=== PATIENT | female | born 1950 | race African-American/Black ===

== ENCOUNTER 2021-03-06 12:21 | Emergency (ER) | payer OTHER ==
[~2021-03-06] VITALS: Ht 165.1 cm; Wt 83.5 kg
[2021-03-06 13:16] LABS: BASOPHILS % 0.5 % (0.0-2.0); EOSINOPHILS % 0.6 % (0.0-5.0); HEMATOCRIT. 40.8 % (36.0-48.0); HEMOGLOBIN. 13.8 g/dL (12.0-16.0); LYMPHOCYTES % 25.2 % (20.0-50.0); MEAN CORPUSCULAR HEMOGLOBIN 30.4 pg (28.0-32.0); MEAN CORPUSCULAR VOLUME 89.7 fL (81.0-99.0); MEAN PLATELET VOLUME 9.6 fl (7.4-10.4); MONOCYTES % 6.7 % (2.0-8.0); PLATELET 186 x1000/uL (130-400); RED BLOOD CELL COUNT 4.55 mill/uL (4.2-5.4)
[2021-03-06 13:22] LABS: CHLORIDE 107 mEq/L (98-107)
[2021-03-06] MEDS ORDERED: IOHEXOL-350 100 ML BOTTLE ONE (15:19)
[2021-03-06 17:06] VITALS: BP 158/70
== END 2021-03-06 17:19 | disposition short-term general hospital (02) ==
LOC: ER 13:27 → CANBEDREQ 16:59 → ER 17:19
DX: I49.9 Cardiac arrhythmia, unspecified (principal); R55 Syncope and collapse; I10 Essential (primary) hypertension
CPT/HCPCS: 36415; 71045; 74174; 80053; 83880; 84484; 85025; 93005; 99285; Q9967

== ENCOUNTER 2024-04-22 20:37 | Emergency (ER) | payer OTHER ==
[~2024-04-22] VITALS: Ht 167.6 cm; Wt 76.0 kg
[2024-04-22 20:43] VITALS: O2SAT 95
[2024-04-22 21:50] LABS: DIFFERENTIAL COMMENT 1; HEMATOCRIT. 40.1 % (36.0-48.0); HEMOGLOBIN. 13.7 g/dL (12.0-16.0); MEAN CORPUSCULAR HEMOGLOBIN 31.1 pg (28.0-32.0); MEAN CORPUSCULAR HGB CONC 34.1 g/dL (31.0-37.0); MEAN CORPUSCULAR VOLUME 91.4 fL (81.0-99.0); MEAN PLATELET VOLUME 9.6 fl (7.4-10.4); PLATELET 186 x1000/uL (130-400); RED BLOOD CELL COUNT 4.39 mill/uL (4.2-5.4); RED CELL DISTRIBUTION WIDTH 13.4 % (11.6-14.6); WHITE BLOOD COUNT 11.2 x1000/uL (4.5-11.0)
[2024-04-22] MEDS: ONDANSETRON HCL 4MG/2ML INJ IV STA (21:52)
[2024-04-22] MEDS: KETOROLAC 30MG/ML VIAL IV STA (21:53)
[2024-04-22 22:00] LABS: CHLORIDE 108 mEq/L (98-107); POTASSIUM 3.7 mEq/L (3.5-5.1); SODIUM 142 mEq/L (136-145)
[2024-04-22 22:01] LABS: CALCIUM 9.6 mg/dL (8.7-10.4); CARBON DIOXIDE 27 mEq/L (21-32)
[2024-04-22 22:03] LABS: PROTHROMBIN TIME 10.9 sec (9.6-11.0)
[2024-04-22 22:06] LABS: CREATININE 1.1 mg/dL (0.6-1.0); GLUCOSE 128 mg/dL (70-105); UREA NITROGEN BLOOD 15 mg/dL (9-23)
[2024-04-22 22:08] LABS: ALANINE AMINOTRANSFERASE 65 IU/L (10-49); ALBUMIN 4.4 g/dL (3.2-4.8); ASPARTATE AMINOTRANSFERASE 129 IU/L (<34); BILIRUBIN DIRECT 0.5 mg/dL (<=3.0)
[2024-04-22 22:09] LABS: BILIRUBIN TOTAL 1.1 mg/dL (0.1-1.0); PROTEIN TOTAL 7.2 g/dL (6.0-8.3)
[2024-04-22 22:10] LABS: PLATELET ESTIMATE NORMAL
[2024-04-22] MEDS: CEFTRIAXONE 2GM/50ML 50 ML IV ONE (23:19)
[2024-04-23] MEDS: METRONIDAZOLE 500 MG PREMIX 100 ML IV ONE (00:24)
[2024-04-23] MEDS: SODIUM CHLORIDE 0.9% 1,000 ML IV ONE (02:12)
[2024-04-23 02:23] VITALS: BP 128/42; PULSE 49; RESP 12; TEMP 98.6
== END 2024-04-23 03:09 | disposition short-term general hospital (02) ==
LOC: ER 20:37
DX: K81.0 Acute cholecystitis (principal); I10 Essential (primary) hypertension; Z88.5 Allergy status to narcotic agent
CPT/HCPCS: 99291; 74176; 96365; 76705; 96375; 80076; 80048; 83690; 85025; 85610; 36415; 93005; 96367; 96361; 96366; J0696; J1885; J3490; J2405; J7030

== ENCOUNTER 2025-01-29 01:46 | Emergency (ER) | payer OTHER ==
[~2025-01-29] VITALS: Ht 172.7 cm; Wt 73.0 kg
[2025-01-29 01:57] VITALS: O2SAT 100
[2025-01-29] MEDS: FAMOTIDINE 20MG/2ML VIAL IV STA (02:43)
[2025-01-29] MEDS: KETOROLAC 30MG/ML VIAL IV STA (02:44)
[2025-01-29] MEDS: SODIUM CHLORIDE 0.9% 1,000 ML IV ONE (02:45)
[2025-01-29 03:00] LABS: BASOPHILS % 0.1 % (0.0-2.0); EOSINOPHILS % 0.1 % (0.0-5.0); HEMATOCRIT. 38.8 % (36.0-48.0); HEMOGLOBIN. 12.9 g/dL (12.0-16.0); LYMPHOCYTES % 7.2 % (20.0-50.0); MEAN CORPUSCULAR HEMOGLOBIN 30.1 pg (28.0-32.0); MEAN CORPUSCULAR HGB CONC 33.3 g/dL (31.0-37.0); MEAN CORPUSCULAR VOLUME 90.5 fL (81.0-99.0); MEAN PLATELET VOLUME 9.2 fl (7.4-10.4); MONOCYTES % 2.6 % (2.0-8.0); PLATELET 224 x1000/uL (130-400); RED BLOOD CELL COUNT 4.28 mill/uL (4.2-5.4); RED CELL DISTRIBUTION WIDTH 13.4 % (11.6-14.6); WHITE BLOOD COUNT 13.1 x1000/uL (4.5-11.0)
[2025-01-29 03:08] LABS: CHLORIDE 107 mEq/L (98-107); POTASSIUM 3.5 mEq/L (3.5-5.1); SODIUM 143 mEq/L (136-145)
[2025-01-29 03:09] LABS: CARBON DIOXIDE 28 mEq/L (21-32)
[2025-01-29 03:10] LABS: CALCIUM 9.3 mg/dL (8.7-10.4)
[2025-01-29 03:14] LABS: CREATININE 1.1 mg/dL (0.6-1.0); GLUCOSE 198 mg/dL (70-105)
[2025-01-29 03:15] LABS: UREA NITROGEN BLOOD 18 mg/dL (9-23)
[2025-01-29 03:16] LABS: ALANINE AMINOTRANSFERASE 121 IU/L (10-49); ASPARTATE AMINOTRANSFERASE 132 IU/L (<34)
[2025-01-29 03:17] LABS: BILIRUBIN DIRECT 0.5 mg/dL (<=3.0); PROTEIN TOTAL 6.9 g/dL (6.0-8.3)
[2025-01-29 03:24] LABS: LACTIC ACID 2.2 mmol/L (0.4-2.0)
[2025-01-29] MEDS: CEFTRIAXONE 1GM/50ML 50 ML IV NR (04:19)
[2025-01-29] MEDS: MORPHINE SULFATE 4 MG/ML INJ (FOR IV/IM USE) IV ONE (05:28)
[2025-01-29] MEDS: ONDANSETRON HCL 4MG/2ML INJ IV ONE (05:28)
[2025-01-29] MEDS: METRONIDAZOLE 500 MG PREMIX 100 ML IV ONE (05:35)
[2025-01-29] MEDS: KETOROLAC 15MG/ML VIAL IV ONE (05:37)
[2025-01-29 05:42] LABS: CLARITY URINE CLEAR (CLEAR); COLOR URINE YELLOW (YELLOW); GLUCOSE URINE NEGATIVE (NEGATIVE); KETONES URINE NEGATIVE (NEGATIVE); LEUKOCYTE ESTERASE URINE TRACE (NEGATIVE); NITRITE URINE NEGATIVE (NEGATIVE); OCCULT BLOOD URINE NEGATIVE (NEGATIVE); PH URINE 8.5 (4.5-8.0); PROTEIN URINE NEGATIVE (NEGATIVE); SPECIFIC GRAVITY URINE 1.018 (1.005-1.030)
[2025-01-29 06:04] LABS: SQUAMOUS EPITHELIAL CELL URINE 2+ /lpf (RARE/1+)
[2025-01-29 06:05] LABS: AMORPHOUS SEDIMENT URINE 1+ /lpf; BACTERIA URINE TRACE; RBC URINE NONE SEEN /hpf (0-2); WBC URINE 0-2 /hpf (0-2)
[2025-01-29 06:43] VITALS: TEMP 36.8
[2025-01-29 07:49] VITALS: BP 144/61; PULSE 60; RESP 15; O2SAT 98
== END 2025-01-29 08:45 | disposition short-term general hospital (02) ==
LOC: ER 02:30
DX: K80.20 Calculus of gallbladder without cholecystitis without obstruction (principal); I10 Essential (primary) hypertension; Z88.5 Allergy status to narcotic agent
CPT/HCPCS: 99285; 96374; 96375; 76705; 96361; 80076; 80048; 81003; 83605; 83690; 85025; 36415; 93005; 96376; J1885 ×2; J0696; J3490 ×2; J2405; J7030; J2270